=== PATIENT | male | born 1980 | race Caucasian/White ===

== ENCOUNTER 2023-01-20 18:10 | Emergency (ER) | payer BC ==
[2023-01-20] MEDS ORDERED: Sodium Chloride 0.9% 10 ML Syringe FLUSH PRN (18:44)
[2023-01-20] MEDS ORDERED: Iopamidol 755 Mg/ML 100 ML Bottle IVPUSH ONE (19:00)
[2023-01-20] MEDS ORDERED: Sodium Chloride 0.9% 100 ML IV SCH (19:00)
[2023-01-20] MEDS ORDERED: LORazepam 2 MG/ML SDV IVPUSH ONE (19:46)
[2023-01-20] MEDS ORDERED: Aspirin 81 MG Tab.Chew PO ONE (19:46)
[2023-01-20] MEDS ORDERED: Heparin Sodium 5,000 Units/ML Vial IVPUSH ONE (19:46)
[2023-01-20] MEDS ORDERED: Nicotine 21 MG/24 Hr Patch TRDERM ONE (19:49)
[2023-01-20] MEDS: Heparin Sodium/D5W 25,000 UNITS/500 ML BAG IV SCH (20:06)
[2023-01-20] MEDS ORDERED: Furosemide 40 MG/4 ML VIAL IVPUSH ONE (20:48)
[2023-01-21] MEDS ORDERED: LORazepam 2 MG/ML SDV IVPUSH PRN (11:34)
[2023-01-21] MEDS ORDERED: Furosemide 40 MG/4 ML VIAL IVPUSH SCH (11:35)
[2023-01-21] MEDS ORDERED: Heparin Sodium 5,000 Units/ML Vial IVPUSH ONE (13:50)
[2023-01-21] MEDS ORDERED: Aspirin 81 MG Tab.Chew PO SCH (14:00)
[2023-01-21] MEDS ORDERED: Nicotine 21 MG/24 Hr Patch TRDERM SCH (14:45)
[2023-01-21] MEDS: Heparin Sodium/D5W 25,000 UNITS/500 ML BAG IV SCH (16:23)
== END 2023-01-21 19:06 ==
LOC: JD.ED 18:10
DX: R77.8 Other specified abnormalities of plasma proteins (principal); I44.7 Left bundle-branch block, unspecified; I10 Essential (primary) hypertension
CPT/HCPCS: 36415; 71275; 84484; 85730; 93005; 93970; 94762; 96365; 96366; 96375; 96376; 99285; A9270; J1644; J1940; J2060; J3490; Q9967; 93010